=== PATIENT | female | born 1975 ===

== ENCOUNTER 2017-11-28 06:32 | Day surgery (SDC) | payer MEDICAID, MEDICARE ==
[2017-11-28] MEDS ORDERED: cefOXitin IV 1 gm in Dextrose 0 GM/0 ML BAG IVPB ONE (07:33)
[2017-11-28] MEDS ORDERED: Midazolam 2 MG/2 ML VIAL ONE (07:37)
[2017-11-28] MEDS ORDERED: Propofol 10 mg/ml Inj (20 ML) ONE (07:37)
[2017-11-28] MEDS ORDERED: Rocuronium 10 mg/ml (5 ml) ONE (07:52)
[2017-11-28] MEDS ORDERED: cefOXitin 2 GM in Sodium Chloride 0.9% 100 ML IVPB ONE (08:00)
[2017-11-28] MEDS ORDERED: Neostigmine Methylsulfate 3mg/3ml Syringe IV ONE (08:10)
[2017-11-28] MEDS ORDERED: HYDROmorphone 0.5 mg/0.5 ml ISec IVP PRN (08:31)
[2017-11-28 10:14] VITALS: O2SAT 99
[2017-11-28 12:36] VITALS: BP 110/54; PULSE 58; RESP 17; TEMP 97.8
--- NOTE | 2017-11-28 19:18 | OP ---
PROCEDURE DATE: 11/28/2017 PREOPERATIVE DIAGNOSES: Fibroid uterus, menorrhagia. POSTOPERATIVE DIAGNOSES: Fibroid uterus, menorrhagia. PROCEDURE: Hysteroscopy, hysteroscopic myomectomy, dilation and curettage of the uterus. FINDINGS: A 1 cm posterior submucosal myoma/polyp. The remainder of the endometrial cavity is normal. SURGEON: Reta Hall MD ANESTHESIA: General. ESTIMATED BLOOD LOSS: Less than 1 mL. COMPLICATIONS: Nil. DESCRIPTION OF PROCEDURE: After the risks, benefits, and alternatives of the planned procedures including, but not limited to, infection, hemorrhage, deep vein thrombosis, atelectasis, pneumonia, pulmonary embolism, damage to the bladder, damage to the ureter, renal insufficiency, renal failure, wound infection, wound dehiscence, incisional hernia, keloid formation, damage to large and small intestines, damage to inferior vena cava and aorta requiring extensive repair, anesthesia complications, electrolyte imbalance, possibility of , fluid overload, cerebral edema, embolism, and other complications that were discussed but are not listed above have been explained to the patient and all her questions answered. Informed consent was obtained. The patient was taken to the operating room in a stable condition. Under a suitable level of general anesthesia, she was prepped and draped in a sterile fashion after having been placed in a dorsal lithotomy position. The bladder was emptied by straight catheterization. Examination under anesthesia revealed a normal-sized uterus, anteverted with no adnexal masses. A weighted speculum was inserted into the vagina. The anterior lip of the cervix was crossed using a single-tooth tenaculum. An endocervical curettage was performed and scant tissue was obtained. The uterus was sounded to 7 cm. The cervix was dilated to #16 Hanks dilator. A hysteroscope was inserted into the uterus and using a MyoSure device, a 1-cm posterior submucosal myoma was resected up to the level of the endometrium with good hemostasis. Hysteroscope was then removed. A gentle endometrial curettage was performed, scant tissue was obtained. Instruments were removed from the vagina. The patient was then transferred to the recovery room in a stable condition. Pad and instrument counts were correct x2. There were no complications. Reta Hall MD [facility] # [id number]
== END 2017-11-28 10:32 | disposition home or self-care (01) ==
LOC: C.SDS 06:32
PROVIDERS: ATTEND Obstetrics & Gynecology Reproductive Endocrinology
DX: D25.0 Submucous leiomyoma of uterus (principal); N92.0 Excessive and frequent menstruation with regular cycle
CPT/HCPCS: 58558; 82948; 88305; J0131; J0694; J1885; J2250; J2704; J2710; J3010